=== PATIENT | female | born 1965 | race Caucasian/White ===

== ENCOUNTER → 2020-09-10 10:22 | Outpatient (CLI) | payer BC, SELFPAY ==
--- NOTE | ~2020-09-10 | MM_ITS ---
EXAMINATION: MM screening evelyn BI w baltazar HISTORY: Screening mammogram TECHNIQUE: Craniocaudal and mediolateral oblique 3-D tomosynthesis images were obtained and synthetic 2-D images were generated. CAD analysis was submitted and interpreted. COMPARISON: 11/17/2016, 03/29/2015, 03/27/2014 bilateral digital screening mammogram examinations BREAST PARENCHYMAL COMPOSITION: There are scattered areas of fibroglandular density. FINDINGS: New suspicious irregular 4 mm high density mass in the outer mid right breast at mid depth. Diagnostic right mammogram and right breast ultrasound examination are recommended. Otherwise there is no evidence of suspicious mass, calcification, or architectural distortion to sugg est malignancy in either breast. There has been no other suspicious interval change. IMPRESSION: 1. New suspicious irregular 4 mm mass in outer mid right breast 2. Diagnostic right mammogram and right breast ultrasound examination are recommended. BI-RADS Category 0: Incomplete: Needs additional imaging evaluation. Dr. Nails telephoned the report and diagnostic right mammogram and ultrasound recommendation to Darnell Luna on 09/10/2020 at 1201 hours. Reviewed, dictated and finalized at location A. ENT ARCHITECT IMPRESSION: 1. New suspicious irregular 4 mm mass in outer mid right breast 2. Diagnostic right mammogram and right breast ultrasound examination are recom mended. BI-RADS Category 0: Incomplete: Needs additional imaging evaluation. Dr. Nails telephoned the report and diagnostic right mammogram and ultrasound re commendation to Darnell Luna on 09/10/2020 at 1201 hours.
== END ==
PROVIDERS: PCP Family Medicine; Visit Provider Family Medicine
DX: Z12.31 Encounter for screening mammogram for malignant neoplasm of breast (principal); R92.8 Other abnormal and inconclusive findings on diagnostic imaging of breast
CPT/HCPCS: 77063; 77067

== ENCOUNTER → 2020-11-12 14:14 | Outpatient (CLI) | payer BC, SELFPAY ==
--- NOTE | ~2020-11-12 | MMUS_ITS ---
EXAMINATION: MM diagnostic evelyn RT w baltazar, US breast RT limited HISTORY: Right breast mass on screening mammogram TECHNIQUE: Additional 3-D tomosynthesis images of the right breast were performed and synthetic 2-D i mages were generated. CAD analysis was submitted and interpreted. High resolution limited right breas t ultrasound was performed. COMPARISON: 09/10/2020, 11/09/2016, 03/29/2015 BREAST PARENCHYMAL COMPOSITION: There are scattered areas of fibroglandular density. FINDINGS: MAMMOGRAPHIC FINDINGS: There is a 7 mm irregular, high density mass with spiculated margins in the middle third of the outer breast at the 10:00 location 15 cm from the nipple. There is a 5 mm mass with similar mammographic f eatures at the same location 15 mm posterior to the larger mass. ULTRASOUND: There is an 8 mm x 5 mm oval, hypoechoic, not parallel mass with indistinct margins, posterior acoust ic shadowing, and peripheral vascularity at the 10:00 location 10.5 cm from the nipple. An adjacent 3 mm round, hypoechoic mass with spiculated margins, internal vascularity, and no definite posterior f eatures is present at the 10:00 location 11 cm from the nipple. IMPRESSION: 1. Suspicious right breast masses. 2. Ultrasound-guided biopsy is recommended. BI-RADS category 5, highly suggestive of malignancy. Reviewed, dictated and finalized at location A. IMPRESSION: 1. Suspicious right breast masses. 2. Ultrasound-guided biopsy is recommended. BI-RADS category 5, highly suggestive of malignancy.
== END ==
PROVIDERS: PCP Family Medicine; Visit Provider Family Medicine
DX: N63.11 Unspecified lump in the right breast, upper outer quadrant (principal)
CPT/HCPCS: 76642; 77061; 77065; G0279

== ENCOUNTER 2021-01-30 09:49 | Outpatient (CLI) | payer BC, SELFPAY ==
--- NOTE | ~2021-01-30 | MMUS_ITS ---
EXAMINATION: US GUIDED NEEDLE BIOPSY DATE: 01/30/2021 16:50 CDT INDICATION: Recent ultrasound demonstrated An irregular 8 x 5 mm hypoechoic antiparallel mass with po sterior shadowing at 10:00 10.5 cm from the nipple and a nearby 3 mm hypoechoic mass with spiculated margins and internal vascularity at 10:00 11 cm from the nipple TECHNIQUE AND FINDINGS: The risks and potential benefits of the procedure were discussed with the patient, and written inform ed consent was obtained. Timeout procedure was performed. After sterile preparation of the right gabriel st, 1% lidocaine was utilized for local anesthesia. A 14G spring-loaded biopsy gun needle was advanced to the edge of the each of the lesions successivel y from medial approach utilizing sonographic guidance. A total of three tissue core samples was obta ined from the larger lesion and to course samples from the smaller lesion.. An Inrad tissue marker c lip was then placed at each biopsy site. Hemostasis was achieved. A sterile bandage was applied. Postbiopsy ML and CC mammogram revealed deployment of only one biopsy marker, at the smaller lesion. Repeat ultrasound-guided placement of a biopsy marker at the larger lesion at 10:00 10.5 cm from the nipple was performed. Repeat ML and CC mammographic views confirmed the successful deployment of this second marker at the larger lesion. The patient tolerated procedure well and there was no evidence of immediate complication. The patien t was given verbal instructions prior to departing from the department. The tissue samples were submi tted to surgical pathology for histologic analysis. IMPRESSION: 1. Successful ultrasound guided biopsy of two right 10:00 breast masses with biopsy marker placemen t. Please refer to pathology report for histologic analysis. Reviewed, dictated and finalized at Location A. Reviewed, dictated and finalized at location A. IMPRESSION: 1. Successful ultrasound guided biopsy of two right 10:00 breast masses with biopsy marker placement. Please refer to pathology report for histologic analys is. IMPRESSION: 1. Successful ultrasound guided biopsy of two right 10:00 breast masses with biopsy marker placement. Please refer to pathology report for histologic analys is.
== END 2021-01-30 09:50 | disposition home or self-care (01) ==
PROVIDERS: PCP Family Medicine; Visit Provider Physician Assistant
DX: R92.8 Other abnormal and inconclusive findings on diagnostic imaging of breast (principal); C50.911 Malignant neoplasm of unspecified site of right female breast
CPT/HCPCS: 19083; 19084; 88305; 88360; A4648

== ENCOUNTER → 2021-06-07 11:09 | Outpatient (CLI) | payer BC, SELFPAY ==
--- NOTE | ~2021-06-07 | XR_ITS ---
EXAMINATION: XR chest 2V 06/07/2021 13:16 INDICATION: Elevated white blood cell count. PROCEDURE: 2 view chest COMPARISON: No prior studies for comparison. FINDINGS: The lungs are clear. The cardiomediastinal silhouette is within normal limits. There are no pleural effusions. There is no pneumothorax suspected. IMPRESSION: 1: NO ACUTE CARDIOPULMONARY DISEASE. Reviewed, dictated and finalized at location A.
== END ==
PROVIDERS: PCP Family Medicine; Visit Provider Family Medicine
DX: D72.829 Elevated white blood cell count, unspecified (principal)
CPT/HCPCS: 71046

== ENCOUNTER 2021-06-18 01:07 | Day surgery (SDC) | payer BC, SELFPAY ==
[2021-06-13 19:02] VITALS: BMI 58.6
--- NOTE | 2021-06-17 11:36 | WPDANESEPPF ---
Anes - Initial Pre Proc Eval Procedure: Operation Date: 06/18/21 12:00 Proposed Procedures p Right Breast Lumpectomy with Ultrasound and/or Mammogram Guided Needle Localization, - Bayron Piper MD s [place] Node Biopsy with Frozen Section, Possible Right Axillary Dissection - Bayron Piper MD Date/Time: 06/17/21 11:36 Surgeon: Bayron Piper MD Pre Op Diagnosis: Invasive ductal right breast cancer Patient Data Age: 55 Gender: F Height: 1.57 m Weight: 145.45 kg Allergies Allergy/AdvReac Type Severity Reaction Status Date / Time Sulfa (Sulfonamide Allergy Intermediate hives Verified 06/18/21 08:49 Antibiotics) ARB-Angiotensin Receptor AdvReac Intermediate Back Pain Verified 06/18/21 08:49 Antagonist losartan AdvReac Intermediate back pain Verified 06/18/21 08:49 Home Medications Medication Instructions Recorded Confirmed Type furosemide 20 mg tablet 20 mg PO QAM #30 tablet 05/16/21 06/18/21 Rx thyroid (pork) 60 mg tablet 60 mg PO DAILY #30 tablet 05/16/21 06/18/21 Rx amlodipine 5 mg PO HS 06/13/21 06/18/21 History anastrozole 1 mg PO DAILY 06/13/21 06/18/21 History hydralazine 12.5 mg PO BID 06/13/21 06/18/21 History irbesartan 75 mg PO DAILY 06/13/21 06/18/21 History potassium 99 mg PO DAILY 06/13/21 06/18/21 History Patient hx anesthesia problems: none Family hx anesthesia problems: none Results Review: All pre-operative results and documents have been reviewed as part of the pre-operative evaluation. [facility] Past Medical History Medical History (Updated 06/17/21 @ 11:37 by Quang Barton MD) Anxiety Benign essential HTN Hypothyroidism (acquired) Invasive ductal carcinoma of right breast Leukocytosis Morbid obesity due to excess calories Umbilical hernia Ventral hernia Family History Family History Father Hypertension Family history of throat cancer Family history of coronary artery disease Mother Hypertension Family history of malignant neoplasm of breast in first degree relative Unknown Diabetes mellitus Heart disease Cerebrovascular accident Hypertension Other Family history of kidney disease Social History Social History (Updated 05/16/21 @ 15:49 by Haydee Amador Social History: Single. Caffeine use: drinks several sodas daily. Also drinks coffee & tea occasionally Smoking status: Former smoker Tobacco type: cigarettes Second hand tobacco smoke exposure: No Smoking end date: 08/23/88 Alcohol intake: current Alcohol use details: once a month Substance use: never Substance use type: does not use Living arrangements: alone Additional occupation/education comments: [employer] Gender identity (if verbalized by the patient): Female Sexual Orientation (if Verbalized by the Patient): Straight or Heterosexual Spiritual care concerns: No Anes - Eval Final PreProcedure Day of Procedure 06/17/21 11:36 Patient weight: super morbidly obese Heart: regular rate and rhythm Lungs: clear to auscultation and normal air movement Airway: Mallampati scale class II Neurological: alert and oriented Last oral intake: >/= 8 hours ASA classification: IV Emergent: no Anesthetic plan: proceed Anesthesia type and monitoring: general ETT Results Review: All pre-operative results and documents have been reviewed as part of the pre-operative evaluation. Informed Consent: The patient's anesthetic plan and its attendant risks and benefits were discussed with the patient/family/POA. Questions were solicited and answers provided to the satisfaction of the patient/family/POA.
[2021-06-18] VITALS (9 sets, daily range): BP systolic 113–172; BP diastolic 56–84; PULSE 74–89; RESP 16–24; TEMP 36.8–37.1; O2SAT 92–98
--- NOTE | ~2021-06-18 | MM_ITS ---
MM needle loc RT DATE: 06/18/2021 11:08 INDICATION: Preoperative mammographically guided wire localization of 2 breast biopsy markers TECHNIQUE: The referring surgeon telephoned me on the morning of the scheduled localization procedure and requested placement of the wire between the 2 biopsy markers. I discussed the purpose of the procedure, technique, potential complications with the patient prior t o the procedure. The patient indicated understanding and gave consent. The right breast was placed in lateral medial compression with a biopsy grid at the medial aspect of the right breast. Using alphanumeric coordinates, the appropriate site for percutaneous needle placem ent was identified. The skin was prepared with sterile Betadine solution. 1% lidocaine local anesthet ic was a human insights lead ads marketing the skin. A 7.5 cm [place] Mammalok needle was introduced into the breast, with confi rmation of appropriate needle direction by lateral medial mammographic exposure. Craniocaudal exposures were subsequently performed to suggest the needle to the appropriate depth. Th e wire was engaged to the tip of the needle. Final craniocaudal and lateral medial exposures reveal t he wire placed midway between the 2 biopsy markers in the posterior aspect of the mid to upper outer right breast. The patient tolerated procedure very well, without complaint or apparent complication. COMPARISON: 01/30/2021 postbiopsy right mammogram IMPRESSION: Successful preoperative mammographically guided percutaneous wire localization of 2 biops y markers in the posterior mid to upper outer right breast Reviewed, dictated and finalized at Location A. Reviewed, dictated and finalized at location A. IMPRESSION: Successful preoperative mammographically guided percutaneous wire l ocalization of 2 biopsy markers in the posterior mid to upper outer right breas t
--- NOTE | ~2021-06-18 | NM_ITS ---
NM sentinel node inject only DATE: 06/18/2021 12:29 INDICATION: Right breast cancer; sentinel node localization TECHNIQUE: The purpose of the procedure, technique and potential complications were discussed with kathia e patient. The patient indicated understanding and gave consent. Timeout procedure confirmed proper patient and procedure and proper side. Four equally divided doses totaling 3 mm 0.983 mCi 99m technetium Lymphoseek injected subdermally in the periareolar area at 12:00, 3:00, 6:00 and 9:00 positions. IMPRESSION: Preoperative subdermal periareolar radiopharmaceutical injection for operative sentinel n ode detection Reviewed, dictated and finalized at Location A. Reviewed, dictated and finalized at location A. IMPRESSION: Preoperative subdermal periareolar radiopharmaceutical injection fo r operative sentinel node detection
--- NOTE | ~2021-06-18 | MM_ITS ---
MM surgical specimen RT DATE: 06/18/2021 14:01 INDICATION: Surgical excision of biopsy markers and adjacent soft tissues TECHNIQUE: Single noncompression mammographic exposure of surgical specimen COMPARISON: 06/18/2021 mammographic localization images FINDINGS: Both biopsy markers and localization wire are present within the surgical soft tissue speci men. IMPRESSION: Successful surgical excision of biopsy markers Reviewed, dictated and finalized at Location A. Reviewed, dictated and finalized at location A.
--- NOTE | 2021-06-18 07:41 | PM.HPGS ---
History of Present Illness History of Present Illness Consent: Risks, benefits, and alternatives Of a right breast lumpectomy, sentinel lymph node biopsy on the right with possible axillary dissection. have been discussed and questions answered. Patient agrees to proceed with procedure. Chief complaint: Invasive ductal right breast cancer Narrative: Reema Salazar is a 55 year old female that presented to the office at the request of Dr White for a breast evaluation After this discovery of poorly differentiated invasive ductal carcinoma on core biopsy.. Patient had a screening mammogram on 09/10/20 that showed a new suspicious irregular 4 mm mass outer mid right breast, BIRADS 0. She had an diagnostic mammogram and ultrasound of the right breast on 11/12/20 that showed there is an 8 mm x 5 mm oval, hypoechoic, not parallel mass with indistinct margins, posterior acoustic shadowing, and peripheral vascularity at the 10:00 with a location 10.5 cm from the nipple. There was also an adjacent 3 mm round, hypoechoic mass with spiculated margins, internal vascularity, and no definite posterior features which was present at the 10:00 location 11 cm from the nipple. BIRADS 5. Patient had a ultrasound guided needle biopsy on 01/30/21 of both lesions that showed Right breast 10:00 10.5 cm from nipple: Poorly differentiated invasive ductal carcinoma. Right breast 10:00 11 cm from nipple: Grade 3 invasive ductal carcinoma. These were only 15 mm apart. Clips were left at both sites. Patient reports that she can not feel the area of concern, however she reports she has not tried to feel the area. She reports that there is a family history of breast cancer but does not go into detail of who this is. She reports she has not had any children. Patient reports she had been recommended by Dr White to complete a biopsy, which was completed. Then surgery, radiations, chemotherapy, then hormone therapy. She reports she would like to complete surgery and radiation only and if the cancer is not in her lymph nodes then she feels that chemotherapy and hormone therapy is not necessary for her. She reports that she was referred to for an breast MRI. She reports she has not had this completed because they want her to lay on her stomach and she can not do this because she has a large painful umbilical hernia. She reports she has lost a month of treatment because she is unable to have this completed. (Discussed with her they could possibly pad her to make her comfortable but patient dismissed this.) She reports she has had genetic testing with Dr White And since her visit at the office this has returned [place] negative. She has discussed it with Dr. White. And after meeting with me in the office she agreed to begin taking her of index while she got her blood pressure under control in order to be able to be safe to go under general anesthesia. ( in the office in March her blood pressure was 200/100. ). After Visit I spoke with Dr. White and after multidisciplinary discussions it was felt that we could avoid the MR at this time and proceed with at least the lumpectomy and sentinel lymph node biopsy. Patient understands that we may convert to a axillary dissection if the sentinel lymph node appears to be positive on touch preps. She is committed to having radiation to the rest of her breast as part of her treatment since this is felt to be poorly differentiated invasive ductal carcinoma. She recently did get in to see her PCP who helped her adjust her meds and get back on her medications for hypertension and hypothyroidism. I believe she is now on these and has been on them at least for 2 weeks. Review of Systems Constitutional: Constitutional: Reports no additional constitutional complaints, Reports fatigue and Denies malaise Eyes: Eyes: Denies change in vision and Denies loss of vision ENT: Reports Normal hearing present, Denies change in voice, Denies dizziness, Denies hoarsen
[2021-06-18] MEDS: LACTATED RINGERS 1,000 ML 30 ML IV CONT ×2 (09:20→14:31)
--- NOTE | 2021-06-18 10:04 | SUR.PREOP ---
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 NO URINE SAMPLE OBTAINED. CONTACTED DR. PATEL OFFICE TO UPDATE MD THAT PT WENT TO NEEDLE LOCALIZATION AT 0942. ALSO UPDATED HIM ON WOUND ON LEFT LOWER LEG. SHE STATED HE KNEW ABOUT THE WOUND, WILL TAKE A LOOK AT IT BEFORE PROCEDURE. NO BLEEDING OR OOZING NOTED.
--- NOTE | 2021-06-18 11:41 | WPDHPUPDATE1 ---
History and Physical Update Update Date/Time: 06/18/21 11:41 History and Physical has been reviewed, including an updated exam of the patient. There are changes in the patient's condition. Pt has a superficial scrape or open woud o the lateral Rt. ankle area. We will apply silver gel and a gauze wrap Risks, benefits, and alternatives have been discussed and questions answered. Patient agrees to proceed with procedure.
[2021-06-18] MEDS: ceFAZolin 3 GM/D5W 100 ML 100 ML IVPB (12:00)
--- NOTE | 2021-06-18 12:03 | SUR.PREOP ---
1145- DR. PATEL SEE PT AND ASSESSED HER WOUND. PT BROUGHT HER OINTMENT FROM HOME. HE STATED TO PLACE ON WOUND AND PUT TELFA AND GAUZE OVER. DRESSING PLACED ON LEFT LOWER LEG
[2021-06-18] MEDS: BUPIVACAINE HCL 0.25% PF 30 ML VIAL INFILTRATE (13:00)
--- NOTE | 2021-06-18 13:13 | SUR.OPER ---
RIGHT BREAST SENTINEL LYMPH NODE #1 SENT WITH KIMBERLY CROSS TO PATHOLOGY AT 13:10. RECEIVED BY SUMIT IN PATHOLOGY AT 13:12.
--- NOTE | 2021-06-18 13:18 | SUR.OPER ---
MAMMS NOTIFIED OF INCISION AT 13:18.
--- NOTE | 2021-06-18 13:45 | SUR.OPER ---
Right Breast Lumpectomy Excised @ 13:31. Short Suture Superior. Long Suture Lateral. Needle Entry Superficial and Lateral. Sent with KIMBERLY Marcelo to MAMMS @ 13:36. Received confirmation at 13:45 that both markers were in specimen and needle was in the center. Dr. Piper aware.
--- NOTE | 2021-06-18 14:09 | SUR.OPER ---
Dr. Rae spoke with Dr. Piper in regards to Right Breast Lumpectomy margins. Margins are good.
--- NOTE | 2021-06-18 14:57 | W.PM.PROC2 ---
Procedure Note - Detailed Date of Procedure 06/18/21 Pre-op Diagnosis Invasive ductal right breast cancer Post-op Diagnosis same Procedure Performed 1. [place] lymph node biopsy times one 2. Needle localized right breast lumpectomy. 3. Lymphozerin blue injection for sentinel lymph node biopsy. Surgeon Bayron Piper MD Supervisor [employer] Jessica NIETO, [place] first assistant Anesthesia general Indications see admitting history and physical. Patient has 2 areas of infiltrating ductal carcinoma the lateral right breast approximately 10 o'clock position approximately 8-9 cm off the nipple-areolar border. These have been previously biopsied with core biopsies but because they were very close together we will plan to place a wire between them. Patient had significantly delayed surgical intervention due to her recalcitrance to get good medical therapy for her severe hypertension and get on medications for her known hypothyroidism which she had been off for a while. While these were being care for we did talk her into taking some anti on therapy with the rim and dex since her tumor was HER2 Concha positive and ER positive. She refused preop HER2/concha immune therapy. Findings Only 1 sentinel lymph node was found even though I probed the area of incision several times after removing the ritual 1. There were also no palpable non sentinel lymph nodes in the area of the axilla investigated for this lymph node biopsy. Normal breast tissue was found surrounding the wire and I cut through normal breast tissue to perform the lumpectomy there was a little bit of fibrosis toward the anterior inferior part of the specimen as I cut through the tissue but in general it appeared to be fairly normal breast tissue. Description of Procedure The patient was seen preoperatively in the holding area, and I marked the patient on the operative side( right). She was brought to the operating room and anesthesia delivered. She was prepped and draped in the usual sterile fashion. A timeout was performed confirming patient and site of surgery. Following this as a 1st step we had Lymphazurin blue available and therefore I decided to go ahead and use this as an injectable way to help identify the sentinel lymph node. 5 cc was obtained and 1 cc was placed in 5 different subdermal areas at the edge of the areola starting at the 6 o'clock position and at the 12 o'clock position laterally on the right nipple. For 1.5 minutes after that I massaged the right breast. An axillary incision was made on the right , and the subcutaneous tissues were dissected with electrocautery and the clavipectoral fascia was incised with electrocautery. Using the Navigator sentinel lymph node probe, the sentinel lymph node was identified and the count in vivo was 610. Then with an ex vivo 10- second count of 6138 was recorded. The count in the axilla after removing this lymph node was between 10 and 45, for background noise. The sentinel lymph node was sent fresh for pathologic evaluation. There were no non- sentinel lymph nodes identified visually or by palpation. ( this wound was covered with a sterile blue towel while I operated on the breast itself for the lumpectomy and subsequently after changing gloves it was closed while we awaited the results of the specimen mammogram and pathologic evaluation of the lumpectomy specimen) ----- The wound was irrigated, hemostased, and closed with 3-0 Vicryl and 4-0 Monocryl. That wound was draped away with a sterile towel and the operative breast was examined. The localizing wire was noted to be entering the breast in the fairly far lateral mid right breast approximately the 9 to 10 o'clock position. Review of the film mammograms provided by the needle localization showed the 2 clips that had been placed at the time of her core biopsy and the wire centered directly in the center of these to. After carefully reviewing these films I outlined my plan of excision. A curvilinear incisio
[2021-06-18] MEDS: oxyCODONE HCL (*CRX) 5 MG TAB IR PO (15:47)
== END 2021-06-18 17:05 | disposition home or self-care (01) ==
PROVIDERS: PCP Family Medicine; Visit Provider Surgery
PROC: (CPT 19301; principal; 2021-06-18 12:00)
PROC: (CPT 19301; 2021-06-18 12:00)
DX: C50.411 Malignant neoplasm of upper-outer quadrant of right female breast (principal); Z17.0 Estrogen receptor positive status [ER+]; I10 Essential (primary) hypertension; E03.9 Hypothyroidism, unspecified; E66.01 Morbid (severe) obesity due to excess calories; Z68.44 Body mass index [BMI] 60.0-69.9, adult; Z87.891 Personal history of nicotine dependence
CPT/HCPCS: 19301; 38525; 19281; 38792; 76098; 88307; 88329; 88333; 88360; A9270; A9520; C1713; C1769; J0690; J1100; J2250; J2405; J2704; J3010; J7120

== ENCOUNTER 2022-08-13 11:49 | Outpatient (CLI) | payer BC, SELFPAY ==
[2022-08-13 12:14] LABS: Basophils Absolute Auto 0.1 K/mm3 (0.0-0.1); Basophils Percent Auto 0.6 % (0.2-1.2); Eosinophils Absolute Auto 0.4 K/mm3 (0-0.3); Eosinophils Percent Auto 3.6 % (0-4.4); Hematocrit 38.3 % (37.0-47.0); Hemoglobin 11.5 g/dL (12.0-15.0); Immature Granulocyte Absolute 0.06 K/mm3 (0.00-0.031); Immature Granulocyte Percent A 0.6 % (0-0.5); Lymphocytes Absolute Auto 1.08 K/mm3 (0.9-3.2); Lymphocytes Percent Auto 10.7 % (18.3-44.2); Mean Corpuscular Hemoglobin 24.6 pg (26-34); Mean Corpuscular Volume 81.8 fl (80-100); Mean Platelet Volume 10.3 fl (7.4-10.4); Monocytes Absolute Auto 0.7 K/mm3 (0.1-0.6); Monocytes Percent Auto 7.2 % (2.6-8.5); Neutrophils Absolute Auto 7.8 K/mm3 (1.3-6.7); Neutrophils Percent Auto 77.3 % (45.5-73.1); Platelet Count Result 314 k/mm3 (150-375); Red Blood Count 4.68 M/mm3 (4.2-5.4); Red Cell Distribution Width 16.1 % (11.5-14.5); White Blood Count 10.1 K/mm3 (4.5-10.0)
[2022-08-13 12:53] LABS: Alanine Aminotransferase 32 U/L (6-35); Albumin Level 4.1 g/dL (3.5-5.1); Alkaline Phosphatase 130 U/L (38-126); Anion Gap 4 mmol/L (8-16); Aspartate Amino Transferase 42 U/L (14-36); Bilirubin,Total 0.4 mg/dL (0.2-1.3); Blood Urea Nitrogen 19 mg/dL (7-17); Calcium 9.2 mg/dL (8.4-10.2); Carbon Dioxide 33 mmol/L (22-30); Chloride 104 mmol/L (98-107); Estimated Glomerular Filt Rate > 60; Glucose 104 mg/dL (65-110); Potassium 4.3 mmol/L (3.4-5.0); Sodium 141 mmol/L (137-145)
[2022-08-18 21:07] LABS: CA 15-3 24 U/mL (<32)
== END 2022-08-13 11:50 | disposition home or self-care (01) ==
LOC: ANHLAB 11:50
PROVIDERS: PCP Family Medicine; Visit Provider Internal Medicine Hematology & Oncology
DX: C50.411 Malignant neoplasm of upper-outer quadrant of right female breast (principal); Z17.0 Estrogen receptor positive status [ER+]
CPT/HCPCS: 36415; 80053; 85025; 86300

== ENCOUNTER → 2022-10-05 15:47 | Outpatient (CLI) | payer OTHER, SELFPAY ==
--- NOTE | ~2022-10-05 | MM_ITS ---
EXAMINATION: MM screening evelyn BI w baltazar HISTORY: Screening mammogram TECHNIQUE: Craniocaudal and mediolateral oblique 3-D tomosynthesis images were obtained and synthetic 2-D images were generated. CAD analysis was submitted and interpreted. COMPARISON: 01/30/2021 right ultrasound-guided breast biopsy: Right breast 10:00 10.5 cm from nipple: Poorly differentiated invasive ductal carcinoma. Right breast 10:00 11 cm from nipple: Grade 3 invasive ductal carcinoma 11/12/2020 diagnostic right mammogram and limited right breast ultrasound 09/10/2020, 11/17/2016 bilateral screening mammogram examinations BREAST PARENCHYMAL COMPOSITION: There are scattered areas of fibroglandular density. FINDINGS: The right breast is asymmetrically small compared to the left breast, with asymmetric skin thickening and accentuated fibroglandular density on the right, likely secondary to right partial mas tectomy and radiotherapy for previously reported invasive ductal carcinoma and ductal carcinoma in si tu. There are surgical clips in the left axillary area as well consistent with prior axillary lymph node dissection. There is no evidence otherwise of suspicious mass, calcification, or architectural distortion, skin t hickening or retraction to suggest malignancy in either breast. IMPRESSION: 1. Likely postoperative changes from right right partial mastectomy and radiotherapy right axillary l ymph node dissection for breast cancer; 2. 6 month diagnostic right mammogram follow-up is recommended to document stability (unless more rec ent mammogram examinations since 01/30/2021 are available for comparison). BI-RADS Category 3: Probably benign Reviewed, dictated and finalized at location A. HOME HEALTH IMPRESSION: 1. Likely postoperative changes from right right partial mastectomy and radioth erapy right axillary lymph node dissection for breast cancer; 2. 6 month diagnostic right mammogram follow-up is recommended to document stab ility (unless more recent mammogram examinations since 01/30/2021 are available for comparison). BI-RADS Category 3: Probably benign
== END ==
PROVIDERS: PCP Internal Medicine Hematology & Oncology; Visit Provider Family Medicine
DX: Z12.31 Encounter for screening mammogram for malignant neoplasm of breast (principal)
CPT/HCPCS: 77063; 77067

== ENCOUNTER 2023-04-05 10:07 | Outpatient (CLI) | payer OTHER, SELFPAY ==
--- NOTE | ~2023-04-05 | DEXA_ITS ---
Bone Density Report Name: ODELL GARNETT Age: 57 Sex: Female Ethnicity: White Date of : 1965 Indication: postmenopausal; screening for osteoporosis; parental hip fracture; cancer; Referring Provider: Moreno White Study: Bone densitometry was performed. Exam Date: April 05, 2023 Accession number: [id number] Bone Density: Region BMD T-score Z-score Classification AP Spine (L1-L4) 0.985 -0.6 0.7 Normal Femoral Neck (Left) 0.826 -0.2 1.0 Normal Total Hip (Left) 1.067 1.0 1.8 Normal Femoral Neck (Right) 0.792 -0.5 0.7 Normal Total Hip (Right) 1.050 0.9 1.7 Normal Total Hip Mean 1.059 1.0 1.8 Normal World Health Organization criteria for BMD impression classify patients as: Normal (T-score at or above -1.0), Osteopenia (T-score between -1.0 and -2.5), or Osteoporosis (T-score at or below -2.5). 10-year Fracture Risk: FRAX not reported because: All T-scores for Spine Total, Hip Total, Femoral Neck at or above -1.0 Clinical Information Provided by Patient: Parent has had a hip fracture Has used the following medications: Vitamin D Has the following medical conditions: Cancer Patient maximum height was 62 Menopause Age: 50 No regular weight bearing exercise Drinks caffeinated beverages Onset of menses at age 9 Number of children 0 Impression: The patient has normal bone mass. The patient has risk factors, including: parental hip fracture. Discussion: BONE DENSITY IS ABOVE THE MINIMUM DESIRABLE LEVEL AT ALL SKELETAL SITES TESTED. This patient?s bone mineral density is above the minimum desirable level (T-score -1.0 or better) at all sites measured. The patient should follow a healthful lifestyle (good nutrition with adequate calcium and vitamin D, and appropriate weight-bearing exercise). Follow-Up: Consider repeating this study in 5 years or sooner if there is some new clinical indication. Reported by: YAA on 04/05/2023 11:16:00 AM. Reviewed, dictated and finalized at location [facility]
== END 2023-04-05 10:08 ==
PROVIDERS: PCP Internal Medicine Hematology & Oncology; Visit Provider Internal Medicine Hematology & Oncology
DX: M85.89 Other specified disorders of bone density and structure, multiple sites (principal)
CPT/HCPCS: 77080

== ENCOUNTER → 2023-04-23 09:23 | Outpatient (CLI) | payer OTHER, SELFPAY ==
--- NOTE | ~2023-04-23 | MM_ITS ---
EXAMINATION: MM diagnostic evelyn RT w baltazar HISTORY: Six-month follow-up for probably benign right breast findings TECHNIQUE: Craniocaudal, mediolateral, and mediolateral oblique 3-D tomosynthesis images of the right breast were performed and synthetic 2-D images were generated. CAD analysis was submitted and interp reted. COMPARISON: 10/05/2022, 11/12/2020, 09/10/2020, 11/17/2016 BREAST PARENCHYMAL COMPOSITION: There are scattered areas of fibroglandular density. FINDINGS: There are stable changes of lumpectomy and axillary lymph node dissection in the right [address]. Skin thickening of the right breast is consistent with radiation change. No suspicious mass, calc ification, or architectural distortion are identified. IMPRESSION: 1. No mammographic evidence of malignancy. Findings in the right breast consistent with surgical and radiation change. 2. Recommend routine screening mammography, due in six months. BI-RADS Category 2: Benign finding(s). Reviewed, dictated and finalized at location A. IMPRESSION: 1. No mammographic evidence of malignancy. Findings in the right breast consist ent with surgical and radiation change. 2. Recommend routine screening mammography, due in six months. BI-RADS Category 2: Benign finding(s).
== END ==
PROVIDERS: PCP Radiology Radiation Oncology; Visit Provider Internal Medicine Hematology & Oncology
DX: C50.411 Malignant neoplasm of upper-outer quadrant of right female breast (principal); Z17.0 Estrogen receptor positive status [ER+]
CPT/HCPCS: 77061; 77065; G0279

== ENCOUNTER 2023-08-29 11:56 | Emergency (ER) | payer OTHER, SELFPAY ==
--- NOTE | ~2023-08-29 | XR_ITS ---
XR ribs LT 2V w CXR 2V DATE: 08/29/2023 12:41 INDICATION: Left chest pain after severe coughing TECHNIQUE: PA chest. Lateral chest. 3 views of left ribs. COMPARISON: None FINDINGS: No displaced left rib fracture is detected. Cardiomegaly. Aortic calcification. No pulmonary infiltrate or consolidation or pneumothorax is detected. Minimal blunting of the costoph renic angle; cannot exclude slight pleural effusions. IMPRESSION: No displaced rib fracture detected Reviewed, dictated and finalized at location A. ARTS CHAIR
[2023-08-29 11:58] VITALS: BP 152/84; PULSE 100; RESP 20; TEMP 36.5; O2SAT 97
--- NOTE | 2023-08-29 12:12 | ED.BACK ---
HPI - Back Pain/Injury General Chief Complaint: Back Pain/Injury Stated Complaint: cough, back pain Time Seen by Provider: 08/29/23 12:12 Source: patient History of Present Illness HPI Narrative: PATIENT REPORTS COLD SYMPTOMS July. MOST OF THE SYMPTOMS ARE IMPROVING AND CURRENTLY BEEN HAVING LINGERING COUGH FITS, LAST NIGHT HAD ANOTHER EPISODE OF COUGHING CAUSED POP FEELING AT THE LEFT SIDE OF THE CHEST.. WORSE WITH BREATHING AND CERTAIN MOVEMENT. Related Data Allergies Allergy/AdvReac Type Severity Reaction Status Date / Time Sulfa (Sulfonamide Allergy Intermediate hives Verified 08/29/23 12:01 Antibiotics) ARB-Angiotensin Receptor AdvReac Intermediate Back Pain Verified 08/29/23 12:01 Antagonist losartan AdvReac Intermediate back pain Verified 08/29/23 12:01 Review of Systems Review of Systems: All systems reviewed & are unremarkable except as noted in HPI and below PMFSH Past Medical History Medical History Anxiety (Unknown) Benign essential HTN (Unknown) Hypothyroidism (acquired) (Unknown) Invasive ductal carcinoma of right breast (~10/2020) Leukocytosis Morbid obesity due to excess calories Umbilical hernia Ventral hernia (Unknown) Surgical History Surgical History H/O lumpectomy Rt breast lumpectomy with SLN bx poss rt axillary dissection 06/18/21 Family History Family History Father Hypertension Family history of throat cancer Family history of coronary artery disease Mother Hypertension Family history of malignant neoplasm of breast in first degree relative Unknown Diabetes mellitus Heart disease Cerebrovascular accident Hypertension Other Family history of kidney disease Social History Social History Social History: Single. Caffeine use: drinks several sodas daily. 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 Gender identity (if verbalized by the patient): Female Sexual Orientation (if Verbalized by the Patient): Straight or Heterosexual Spiritual care concerns: No Exam Narrative: GENERAL APPEARANCE: WELL-DEVELOPED, WELL-NOURISHED SKIN: NORMAL COLOR HEAD: NORMOCEPHALIC, NONTRAUMATIC EYES: CLEAR CONJUNCTIVA ENT: OROPHARYNX NORMAL, EARS NORMAL, NOSE NORMAL NECK: SUPPLE, NONTENDER CHEST AND RESPIRATORY: AIRWAY PATENT, NO RESPIRATORY DISTRESS, NO ACCESSORY MUSCLE USE NO LOCALIZED CHEST WALL TENDERNESS HEART: REGULAR RATE/RHYTHM ABDOMEN: SOFT, NONTENDER, NO ORGANOMEGALY, QUIET BOWEL SOUNDS VASCULAR: NORMAL PERIPHERAL PULSES, NORMAL CAPILLARY REFILL. MUSCULOSKELETAL: NORMAL RANGE OF MOTION, NONTENDER BACK NEUROLOGIC: ALERT AND ORIENTED ?3, MERCHANDISE ASSOCIATE IS NORMAL TESTED, NO GROSS MOTOR DEFICIT Course Vital Signs Vital signs: Vital Signs Temperature 36.5 C 08/29/23 11:58 Pulse Rate 100 08/29/23 11:58 Respiratory Rate 20 08/29/23 11:58 Blood Pressure 152/84 H 08/29/23 11:58 Pulse Oximetry 97 08/29/23 11:58 Oxygen Delivery Room Air 08/29/23 11:58 Temperature 36.
[2023-08-29 12:57] LABS: Influenza A QL RT-PCR Negative (Negative); Influenza B QL RT-PCR Negative (Negative); RSV RNA, RT-PCR Negative (Negative); SARS-CoV-2 RNA PCR Negative (Negative)
[2023-08-29 13:39] VITALS: PULSE 73; RESP 19; O2SAT 97
== END 2023-08-29 13:40 | disposition home or self-care (01) ==
PROVIDERS: Emergency Provider Emergency Medicine; PCP Family Medicine
DX: J40 Bronchitis, not specified as acute or chronic (principal); R07.89 Other chest pain; I10 Essential (primary) hypertension; E03.9 Hypothyroidism, unspecified; F41.9 Anxiety disorder, unspecified; E66.01 Morbid (severe) obesity due to excess calories; Z68.44 Body mass index [BMI] 60.0-69.9, adult; Z87.891 Personal history of nicotine dependence; Z79.51 Long term (current) use of inhaled steroids; Z20.822 Contact with and (suspected) exposure to COVID-19
CPT/HCPCS: 71046; 71100; 87637; 99283

== ENCOUNTER 2023-12-01 13:54 | Outpatient (CLI) | payer OTHER, SELFPAY ==
--- NOTE | ~2023-12-01 | MM_ITS ---
EXAMINATION: MM screening evelyn BI w baltazar HISTORY: Screening mammogram TECHNIQUE: Craniocaudal and mediolateral oblique 3-D tomosynthesis images were obtained and synthetic 2-D images were generated. CAD analysis was submitted and interpreted. COMPARISON: 04/23/2023 diagnostic right mammogram To bilateral screening mammogram BREAST PARENCHYMAL COMPOSITION: There are scattered areas of fibroglandular density. FINDINGS: History of right partial mastectomy for breast cancer. There are surgical clips in the right axillary tail area. There is chronic stable asymmetric mild ski n thickening on the right and asymmetric accentuation of fibroglandular stroma, both mildly improved since October 05, 2022, likely a result of prior radiotherapy. Chronic asymmetric increased density in the mid to upper outer right breast, likely due to postsurgic al change. No new suspicious mass or new architectural distortion or significant new or developing density of ei ther breast is evident compared to October 05, 2022. There are benign calcifications, primarily on the right. No malignant calcification is evident. No sk in thickening or retraction, suspicious mass or architectural distortion is noted on the left. IMPRESSION: 1. Status post right partial mastectomy and presumed radiotherapy and right axillary node dissection for right breast cancer; mild improvement of postoperative radiation changes since October 05, 2022 2. Benign findings. No significant new finding since October 05, 2022; no evidence of recurrent michael gnancy is evident BI-RADS Category 2: Benign finding(s). Reviewed, dictated and finalized at location A. IMPRESSION: 1. Status post right partial mastectomy and presumed radiotherapy and right axi llary node dissection for right breast cancer; mild improvement of postoperativ e radiation changes since October 05, 2022 2. Benign findings. No significant new finding since October 05, 2022; no evid ence of recurrent malignancy is evident BI-RADS Category 2: Benign finding(s).
== END 2023-12-01 13:55 ==
PROVIDERS: PCP Family Medicine; Visit Provider Family Medicine
DX: Z12.31 Encounter for screening mammogram for malignant neoplasm of breast (principal)
CPT/HCPCS: 77063; 77067

== ENCOUNTER 2024-12-15 13:24 | Outpatient (CLI) | payer OTHER, SELFPAY ==
--- NOTE | ~2024-12-15 | MM_ITS ---
EXAMINATION: MM screening [facility] BI w baltazar HISTORY: Screening TECHNIQUE: Craniocaudal and mediolateral oblique 3-D tomosynthesis images were obtained and synthetic 2-D images were generated. CAD analysis was submitted and interpreted. COMPARISON: Comparison to multiple prior studies sequentially, with oldest reviewed study dated 01/30. BREAST PARENCHYMAL COMPOSITION: Not dense: There are scattered areas of fibroglandular density. FINDINGS: Stable asymmetry/architectural distortion upper outer quadrant of the right breast, consist ent with previous lumpectomy site. There is no evidence of suspicious mass, calcification, or archite ctural distortion to suggest malignancy in either breast. There has been no suspicious interval shaw e. IMPRESSION: 1. No mammographic evidence of malignancy. 2. Recommend routine screening mammography in one year. BI-RADS Category 2: Benign finding(s). Reviewed, dictated and finalized at location A.
== END 2024-12-15 13:25 | disposition home or self-care (01) ==
PROVIDERS: PCP Family Medicine; Visit Provider Internal Medicine Hematology & Oncology
DX: Z12.31 Encounter for screening mammogram for malignant neoplasm of breast (principal)
CPT/HCPCS: 77063; 77067

== ENCOUNTER 2025-07-31 12:45 | Outpatient (CLI) | payer OTHER, SELFPAY ==
[2025-07-31 17:31] LABS: Iron 45 ug/dL (37-170)
[2025-07-31 17:49] LABS: Percent Iron Saturation 15 % (20-50)
[2025-07-31 18:12] LABS: Ferritin 129.00 ng/mL (11.1-264)
[2025-07-31 18:23] LABS: Vitamin B12 > 1000.0 pg/mL (239-931)
== END 2025-07-31 12:46 | disposition home or self-care (01) ==
LOC: ANHLAB 12:45
PROVIDERS: PCP Family Medicine; Visit Provider Internal Medicine Hematology & Oncology
DX: D64.9 Anemia, unspecified (principal)
CPT/HCPCS: 36415; 82607; 82728; 83540; 83550